=== PATIENT | female | born 1975 | race Asian ===

== ENCOUNTER 2017-06-11 08:28 | Outpatient (CLI) | payer OTHER ==
--- NOTE | 2017-06-11 12:44 | XRAY Report ---
THREE VIEW LEFT FIFTH FINGER: 06/11/2017 CLINICAL INDICATION: Pain. FINDINGS: AP, lateral, oblique views of the left fifth finger demonstrate no evidence of fracture or dislocation. The joint spaces are preserved. No radiopaque foreign body is seen in the soft tissues. IMPRESSION: NORMAL LEFT FIFTH FINGER. TD: 06/11/2017 12:43
== END 2017-06-11 08:29 | disposition home or self-care (01) ==
LOC: DI.N 08:28
PROVIDERS: ATTEND Family Medicine
DX: M79.645 Pain in left finger(s) (principal)
CPT/HCPCS: 73140

== ENCOUNTER 2017-11-07 09:16 | Outpatient (CLI) | payer OTHER ==
--- NOTE | 2017-11-07 09:53 | XRAY Report ---
Procedure Date: 11/07/2017 Accession Number: [id number] / [id number] Procedure: XRN - Foot 3 View RT CPT Code: FULL RESULT: EXAM: Foot 3 View RT DATE: 11/07/2017 9:32 AM CLINICAL HISTORY: heel pain right COMPARISON: None. TECHNIQUE: 3 views. FINDINGS: Bones: Normal. No fractures or bone lesions. Mild calcaneal posterior and inferior spurring. Joints: Normal. No subluxations. Soft Tissues: Normal. No soft tissue swelling. IMPRESSION: Calcaneal inferior and posterior spurring. RADIA
== END 2017-11-07 09:17 | disposition home or self-care (01) ==
LOC: DI.N 09:16
PROVIDERS: ATTEND Family Medicine
DX: M77.31 Calcaneal spur, right foot (principal)